=== PATIENT | female | born 1940 | race Caucasian/White ===

== ENCOUNTER → 2016-11-08 | Outpatient (CLI) | payer MEDICARE ==
--- NOTE | 2016-11-08 09:27 | EKG ---
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
== END | disposition home or self-care (01) ==
LOC: CCL 09:09
DX: M65.331 Trigger finger, right middle finger (principal)
CPT/HCPCS: 93005

== ENCOUNTER 2019-06-14 12:00 | Day surgery (SDC) | payer BC ==
[~2019-06-14] VITALS: Ht 165.1 cm; Wt 56.0 kg
[~2019-06-14 12:00] MED LIST: ACET325T9 PO; ALBU2.5V5 NEB; ALPR0.5T6 PO; AMOX1TAB61 PO; ASPI-630 PO; ATOR40TA59 PO; CELE100C PO; DICY10CA3 PO; DULO20CA18 PO; ESCITALOPRAM OX10 MG PO; FURO40TA4 PO; HYDR-2761 PO; LACT1CAP21 PO; LISI-338 PO; METO-239 PO; OMEP20TA8 PO; POTA20TA40 PO; PRED20TA PO
[2019-06-14] MEDS ORDERED: IOHEXOL 300 MG/ML 50 ML VIAL. ONE (12:19)
[2019-06-14] MEDS ORDERED: LIDOCAINE 2% PF 5 ML VIAL. ONE (13:14)
[2019-06-14] MEDS ORDERED: fentaNYL PF VIAL 100 MCG/2 ML VIAL ONE (13:14)
[2019-06-14] MEDS ORDERED: PROPOFOL 20 ML IV ONE (13:14)
[2019-06-14] MEDS ORDERED: IV RINGERS,LACTATED 1000ML 1,000 ML IV ONE (13:30)
[2019-06-14] MEDS ORDERED: ONDANSETRON PF 4 MG/2 ML VIAL. ONE (13:38)
[2019-06-14] MEDS ORDERED: DEXAMETHASONE SOD PHOS 4 MG/ML VIAL ONE (13:38)
[2019-06-14] MEDS ORDERED: SEVOFLURANE 31 TO 60 MINUTES. IH ONE (13:38)
--- NOTE | 2019-06-14 13:59 | PDOC4 ---
OPERATIVE NOTE Date: Date: Jun 14, 2019 Pre-Op Diagnosis: right ureter stone Post-Op Diagnosis: history of kidney stone Procedure Performed: right ureteroscopy (diagnostic) Surgeon: Mariangel Nascimento MD Anesthesia Type: general Blood Loss: 0 Specimans Obtained: none Findings: normal right ureter and kidney. no stones identified. Complications: none Operative Note: see dictation MARIANGEL NASCIMENTO MD Jun 14, 2019 13:59
--- NOTE | 2019-06-14 14:03 | DISCH ---
DISCHARGE INSTRUCTIONS Condition on Discharge Condition on Discharge: Stable Activity After Discharge Activity Instructions for Disc: Activity as tolerated Driving Instructions after Dis: Do not drive Diet after Discharge Diet after Discharge: Cardiac Contacting the DR. after DC Call your doctor for: Concerns you may have MARIANGEL NASCIMENTO MD Jun 14, 2019 14:03
[2019-06-14] MEDS ORDERED: IV RINGERS,LACTATED 1000ML 1,000 ML IV SCH (14:42)
[2019-06-14] MEDS ORDERED: PROCHLORPERAZINE 10 MG/2 ML VIAL. IV PRN (14:45)
[2019-06-14] MEDS ORDERED: LIDOCAINE 1% PF 2 ML VIAL. ID PRN (14:45)
[2019-06-14] MEDS ORDERED: MORPHINE SULFATE 2 MG/ML VIAL. IV PRN (14:45)
[2019-06-14] MEDS ORDERED: HYDROmorphone 2 MG/ML VIAL IV PRN (14:45)
[2019-06-14] MEDS ORDERED: fentaNYL PF VIAL 100 MCG/2 ML VIAL IV PRN ×2 (14:45)
[2019-06-14 15:20] VITALS: BP 174/82
--- NOTE | 2019-06-14 15:21 | OP ---
DATE OF SURGERY: 06/14/2019 SURGEON: Mariangel Nascimento MD CHEMISTRY LECTURER: None. PREOPERATIVE DIAGNOSIS: Right ureter stone. POSTOPERATIVE DIAGNOSIS: History of kidney stone. PROCEDURE PERFORMED: Right diagnostic ureteroscopy and stent removal. ANESTHESIA TYPE: General. DESCRIPTION OF PROCEDURE: This is a 78-year-old female recently hospitalized for UTI and pyelonephritis with a 3 mm right ureter stone. She had undergone right ureter stent placement. Now, she returns for definitive stone management. DESCRIPTION OF PROCEDURE: Informed consent was obtained. The patient was taken to the operating room where general anesthesia was induced. She was placed in the dorsal lithotomy position, sterilely prepped and draped. A timeout was performed. A rigid cystoscope was advanced through the urethra and into the bladder. The ureteral stent was grasped and pulled out to the urethral meatus. A guidewire was placed through the stent and up into the right renal pelvis. The stent was removed. A rigid ureteroscope was advanced alongside the wire and into the ureter and all the way up to the proximal ureter. No stone was visualized and the ureter was widely patent. The rigid scope was removed and a flexible ureteroscope was advanced over the wire and up into the right renal pelvis. Renal pelvis appeared normal without stones. The ureter was inspected while withdrawing the scope and again no stones were seen. The bladder was emptied. The patient was then awakened and taken to the recovery room in stable condition. BLOOD LOSS: None. COMPLICATIONS: None. SPECIMEN: None. MARIANGEL NASCIMENTO MD DR: SARAH/kelly JOB#: [id number] / [id number]
== END 2019-06-14 15:57 | disposition home or self-care (01) ==
LOC: SURG 12:00
PROVIDERS: ATTEND Urology
DX: Z46.6 Encounter for fitting and adjustment of urinary device (principal); Z87.442 Personal history of urinary calculi; Z87.440 Personal history of urinary (tract) infections
CPT/HCPCS: 52310; 76000; A7015; C1769; J0690; J1100; J2001; J2405; J2704; J3010; Q9967

== ENCOUNTER 2019-07-17 08:54 | Outpatient (CLI) | payer BC ==
[~2019-07-17] VITALS: Ht 165.1 cm; Wt 57.6 kg
[2019-07-17] VITALS (9 sets, daily range): BP systolic 126–147; BP diastolic 49–73
[2019-07-17 10:14] LABS: HEMATOCRIT 31.2 % (36.0-47.0); HEMOGLOBIN 10.4 g/dL (12.0-15.5); RED BLOOD COUNT 3.34 x10^6/uL (3.50-5.40); RED CELL DISTRIBUTION WIDTH 15.2 % (11.5-14.5); WHITE BLOOD COUNT 7.3 x10^3/uL (4.0-11.0)
[2019-07-17] MEDS ORDERED: HEPARIN for ARTERIAL LINE 1,500 ML ONE (10:14)
[2019-07-17] MEDS ORDERED: IODIXANOL 320 MG/ML 100 ML VIAL. ONE (10:14)
[2019-07-17] MEDS ORDERED: LIDOCAINE 1% PF 2 ML VIAL. ONE (10:14)
[2019-07-17 10:20] LABS: CREATININE 0.9 mg/dL (0.6-1.0); GFR 60.4; POTASSIUM 4.6 mmol/L (3.5-5.1)
[2019-07-17] MEDS ORDERED: LIDOCAINE 1% Multi-Dose 20 ML VIAL. ONE (10:20)
[2019-07-17] MEDS ORDERED: DULO20CA PO (10:26)
[2019-07-17 10:33] LABS: PROTHROMBIN TIME PATIENT 12.4 SEC (11.7-14.0)
[2019-07-17] MEDS ORDERED: VERAPAMIL 5 MG/2 ML VIAL. IART ONE (11:00)
[2019-07-17] MEDS ORDERED: IODIXANOL 320 MG/ML 100 ML VIAL. IART ONE (11:00)
[2019-07-17] MEDS ORDERED: HEPARIN for IV BOLUS 10,000 UNIT/10 ML VIAL. IART ONE (11:00)
[2019-07-17] MEDS ORDERED: NITROGLYCERIN 200 MCG/2 ML SYRINGE FOR CATH/VASC LAB. IART ONE (11:00)
[2019-07-17] MEDS ORDERED: MIDAZOLAM HCL/PF 2 MG/2 ML VIAL. IV ONE (11:00)
[2019-07-17] MEDS ORDERED: LIDOCAINE 1% PF 2 ML VIAL. INJ ONE (11:00)
[2019-07-17] MEDS ORDERED: fentaNYL PF VIAL 100 MCG/2 ML VIAL IV ONE (11:00)
[2019-07-17] MEDS ORDERED: MIDAZOLAM HCL/PF 2 MG/2 ML VIAL. ONE (11:12)
[2019-07-17] MEDS ORDERED: fentaNYL PF VIAL 100 MCG/2 ML VIAL ONE (11:12)
[2019-07-17] MEDS ORDERED: HEPARIN for IV BOLUS 10,000 UNIT/10 ML VIAL. ONE (11:12)
[2019-07-17] MEDS ORDERED: VERAPAMIL 5 MG/2 ML VIAL. ONE (11:12)
[2019-07-17] MEDS ORDERED: NITROGLYCERIN 200 MCG/2 ML SYRINGE FOR CATH/VASC LAB. ONE (11:13)
--- NOTE | 2019-07-17 11:28 | CARD ---
MR#: [id number] Date of Study: 07/17/2019 Ordering Physician: SAIMA REA, Referring Physician: SAIMA REA, Tech: RT Samm (R) APPROVED REPORT Technologist: Misa Cisneros RT (R) Nurse: Bee Sanchez R.N. Procedure(s) performed: fl time: 4.0 mins dose: 16.8 gy/cm2 contrast: 54 ml sedation: 40 Minutes LHC, Coronary angiography, Left ventriculogram HISTORY The patient is a 78 year-old female with a history of : hypertension, dyslipidemia. INDICATION The indication(s) include : unstable angina , dyspnea, valvular heart disease, cardiomyopathy. [facility] Clinical Frailty Scale [facility] Clinical Frailty Scale: Moderately Frail Heart Failure Heart Failure: Yes If Yes, Newly Diagnosed: No If Yes, HF Type: Systolic If Yes, NYHA Class: Class II CASE TECHNIQUE During this case, Fluoroscopy and low osmolar contrast were used for imaging. PROCEDURE NARRATIVE INFORMED CONSENT: After explaining the risks and benefits of the procedure and alternatives, informed consent was obtained. The patient was brought electively to the cardiac catheterization lab. A timeout was performed confi rming the patient's name, date of , procedure, and site of procedure. All necessary personnel w ere wearing the appropriate protective equipment and radiation monitor devices. (See nursing notes for medications administered). ACCESS: The right wrist was sterilely prepped and draped in the usual fashion. The right wrist was infiltrat ed with 1 mL of 2% lidocaine for subcutaneous anesthesia. A 6 [place] Terumo glide sheath was inserte d into the right radial artery without difficulty. CORONARY ANGIOGRAPHY: Right and left coronary angiography was performed using a 6Fr TIG 4.0 catheter. Left ventricular en d diastolic pressure was obtained with a pigtail catheter and pullback was performed after left ventr iculography. All catheter exchanges and advancements were performed over a guidewire. CLOSURE: At case completion the right radial sheath was removed and a Terumo radial band was applied with 13 m l of air. COMPLICATIONS: The patient tolerated the procedure well and there were no immediate complications. FINDINGS: HEMODYNAMICS: LVEDP 16 mm Hg 25 mm Hg peak to peak gradient on pullback. AO: 128/78 LEFT VENTRICULOGRAM: EF 55% Anterobasal: Normal. Anterolateral: Normal Apical: Normal Diaphragmatic: Normal Posterobasal: Normal CORONARY ANGIOGRAPHY: LM is a large caliber vessel with a distal 20% stenosis. LAD is a large caliber vessel with normal angiographic appearance. Ramus is a moderate caliber vessel with normal angiographic apeparance. LCx is a moderate caliber non-dominant vessel with normal angiographic appearance. OM1 is a moderate caliber vessel with normal angiographic appearance. RCA is a large caliber dominant vessel with normal angiographic appearance. RPDA and RPL are moderate caliber vessels with normal angiographic appearance. Conclusion 1. Normal left sided filling pressures. 2. Mild aortic stenosis. 3. Normal LV systolic function. EF 55% 4. No significant obstructive coronary disease. Recommendations Aggressive Medical Therapy Signed by : Saima Rea, Electronically Approved : 07/17/2019 11:27:46
--- NOTE | 2019-07-17 13:50 | NUR ---
Discharge Note: URBANO BERGERON Discharge instructions and discharge home medications reviewed with patient and a copy given. All questions have been answered and understanding verbalized. The following instructions and handouts were given: Radial site care and moderate sedation. Discontinued lines, right radial dressing site intact and armboard secure. Patient discharged to home with spouse via wheelchair.
== END 2019-07-17 13:50 | disposition home or self-care (01) ==
LOC: CCL 08:54
PROVIDERS: ATTEND Internal Medicine Cardiovascular Disease
DX: I25.110 Atherosclerotic heart disease of native coronary artery with unstable angina pectoris (principal); I35.0 Nonrheumatic aortic (valve) stenosis; I10 Essential (primary) hypertension; E78.5 Hyperlipidemia, unspecified; I42.9 Cardiomyopathy, unspecified; Z79.899 Other long term (current) drug therapy; Z79.01 Long term (current) use of anticoagulants
CPT/HCPCS: 36415; 80048; 85027; 85610; 85730; 93458; 99152; 99153; C1769; C1892; J1644; J2250; J3010; J3490; Q9967

== ENCOUNTER 2019-11-30 22:21 | Emergency (ER) | payer BC ==
[~2019-11-30] VITALS: Ht 157.5 cm; Wt 55.0 kg
[~2019-11-30 22:21] MED LIST changes: +DULO20CA PO
--- NOTE | 2019-11-30 22:44 | PHYS DOC ---
Past Medical History Past Medical History: Anxiety, Arthritis, COPD, Depression, GERD, Hypertension Additional Past Medical Histor: MACULAR DEGENERATION, BLIND IN RIGHT EYE, GLAUCOMA Past Surgical History: No Surgical History Smoking Status: Former Smoker Alcohol Use: None Drug Use: None Adult General HPI HPI Patient is a 79 year old female who presents with ground-level fall that occurred prior to arrival. The patient does not remember all of the event. The patient denies blood thinner use. The patient has bruising to the left eye, and a small laceration to the around the eyebrow. The patient has a bruise on the right knee, and thinks that her right knee might of given out on her. The patient also has bruising to the left shoulder and the right hand. She also reports cervical neck pain. Unable to obtain additional information at this time due to the discomfort of the patient. Review of Systems Review of Systems Constitutional: Denies fever or chills [] Eyes: Denies change in visual acuity, redness, or eye pain [] HENT: Denies nasal congestion or sore throat [] Respiratory: Denies cough or shortness of breath [] Cardiovascular: No additional information not addressed in HPI [] GI: Denies abdominal pain, nausea, vomiting, bloody stools or diarrhea [] : Denies dysuria or hematuria [] Musculoskeletal: Reports neck pain, face pain, L humerus, L shoulder, R knee, R hand, wrist, and L femur. Integument: Reports bruising to the L shoulder, R knee, R hand. Neurologic: Denies headache, focal weakness or sensory changes []h or skin lesions Endocrine: Denies polyuria or polydipsia [] Complete systems were reviewed and found to be within normal limits, except as documented in this note. Current Medications Current Medications Current Medications Medications (Trade) Dose Ordered Sig/Simin Start Time Stop Time Status Last Admin Dose Admin Fentanyl Citrate (Fentanyl 2ml Vial) 50 mcg 1X ONCE 12/01/19 00:30 12/01/19 00:31 Nicardipine HCl 50 mg/Sodium Chloride 250 ml @ 25 mls/hr CONT PRN 12/01/19 00:00 12/01/19 00:09 DC 12/01/19 00:09 25 MLS/HR Ondansetron HCl (Zofran) 4 mg 1X ONCE 11/30/19 23:00 11/30/19 23:01 DC 11/30/19 23:38 4 MG Allergies Allergies Allergies Coded Allergies Type Severity Reaction Last Updated Verified NSAIDS (Non-Steroidal Anti-Inflamma Allergy Intermediate RASH 06/14/19 Yes Physical Exam Physical Exam Constitutional: Well developed, well nourished, no acute distress, non-toxic appearance. [] HENT: Normocephalic, traumatic, <0.25 laceration to the L eyebrow that has dried crusted blood, bruising to L cheekbone, bilateral external ears normal, oropharynx moist, no oral exudates, nose normal. [] Eyes: PERRLA, EOMI, conjunctiva normal, no discharge. [] Neck: Cervical spine tenderness, supple, no stridor. [] Cardiovascular:Heart rate regular rhythm, no murmur [] Lungs & Thorax: Bilateral breath sounds clear to auscultation [] Abdomen: Bowel sounds normal, soft, no tenderness, no masses, no pulsatile masses. [] Skin: Warm, dry, no erythema, no rash. [] Back: No tenderness, no CVA tenderness. [] Extremities: Tenderness to R knee, L femur, L shoulder, pelvis, R hand, L humerus. Full ROM to L shoulder. Edema to R hand. Neurologic: Alert and oriented X 3, normal motor function, normal sensory function, no focal deficits noted. [] Psychologic: Affect normal, judgement normal, mood normal. [] Current Patient Data Vital Signs Vital Signs Date Time Temp Pulse Resp B/P (MAP) Pulse Ox O2 Delivery O2 Flow Rate FiO2 11/30/19 23:37 72 187/83 (117) Nasal Cannula 4.0 11/30/19 22:25 97.8 22 100 97.8 Lab Values Laboratory Tests Test 11/30/19 23:07 White Blood Count 10.0 x10^3/uL (4.0-11.0) Red Blood Count 3.25 x10^6/uL (3.50-5.40) L Hemoglobin 10.3 g/dL (12.0-15.5) L Hematocrit 30.2 % (36.0-47.0) L Mean Corpuscular Volume 93 fL (79-100) Mean Corpuscular Hemoglobin 32 pg (25-35) Mean Corpuscular Hemoglobin Concent 34 g/dL (31-37) Red Cell Distribution Width 14.4 % (11.5-14.5) Platelet Count 212 x10^3/uL (140-400) Neutrophils (%) (Auto) 66 % (31-73) Lymphocytes (%) (Auto) 22 % (24-48) L Monocytes (%) (Auto) 8 % (0-9) Eosinophils (%) (Auto) 3 % (0-3) Basophils (%) (Auto) 1 % (0-3) Neutrophils # (Auto) 6.6 x10^3/uL (1.8-7.7) Lymphocytes # (Auto) 2.2 x10^3/uL (1.0-4.8) Monocytes # (Auto) 0.8 x10^3/uL (0.0-1.1) Eosinophils # (Auto) 0.3 x10^3/uL (0.0-0.7) Basophils # (Auto) 0.1 x10^3/uL (0.0-0.2) Prothrombin Time 12.5 SEC (11.7-14.0) Prothrombin Time INR 1.0 (0.8-1.1) Activated Partial Thromboplast Time 29 SEC (24-38) Sodium Level 145 mmol/L (136-145) Potassium Level 4.0 mmol/L (3.5-5.1) Chloride Level 107 mmol/L (98-107) Carbon Dioxide Level 35 mmol/L (21-32) H Anion Gap 3 (6-14) L Blood Urea Nitrogen 22 mg/dL (7-20) H Creatinine 0.9 mg/dL (0.6-1.0) Estimated GFR (Cockcroft-Gault) 60.2 BUN/Creatinine Ratio 24 (6-20) H Glucose Level 143 mg/dL (70-99) H Calcium Level 9.1 mg/dL (8.5-10.1) Total Bilirubin 0.4 mg/dL (0.2-1.0) Aspartate Amino Transferase (AST) 17 U/L (15-37) Alanine Aminotransferase (ALT) 17 U/L (14-59) Alkaline Phosphatase 111 U/L (46-116) Troponin I Quantitative < 0.017 ng/mL (0.000-0.055) Total Protein 6.7 g/dL (6.4-8.2) Albumin 3.5 g/dL (3.4-5.0) Albumin/Globulin Ratio 1.1 (1.0-1.7) Laboratory Tests 11/30/19 23:07 Laboratory Tests 11/30/19 23:07 EKG EKG [] Radiology/Procedures Radiology/Procedures [facility] [address] [place] [address] IMAGING REPORT Signed PATIENT: URBANO BERGERON ACCOUNT: [id number] : 1940 LOCATION: ER AGE: 79 SEX: F EXAM STATUS: REG ER ORD. PHYSICIAN: KELLEN MAHMOOD APRN REASON: fall PROCEDURE: CT CERVICAL SPINE WO CONTRAST Exam: CT head, face and cervical spine INDICATION: Fall TECHNIQUE: Sequential axial images through the head, face and cervical spine were obtained without the administration of IV contrast. Comparisons: None FINDINGS: Head: Small amount of subarachnoid hemorrhage in the right temporal region.. There is no midline shift or sulcal effacement. No acute vascular territory infarction is identified. Llamas-white distinction is preserved. The ventricular system is within normal limits without compression hydrocephalus. The basal cisterns are well maintained. Face: Fracture through the anterior, medial and posterior wall of the left maxillary sinus. Hemorrhagic products are noted throughout the left maxillary sinus. Additionally, there is a fracture through the inferior/lateral wall of the left orbit. Small amount of air is noted within the post septal fat of the left orbit lung the lateral aspect adjacent to the fracture. Multipart fracture involving the left zygomatic arch is also noted. Otherwise, globes and intraorbital contents are normal. Cervical spine: Vertebral body heights and alignment are well-maintained. Fracture to the cervical spine is not identified. Multilevel spondylotic change in the cervical spine with mild diffuse degenerative disc disease and facet arthropathy. Visualized paraspinal soft tissues are unremarkable. IMPRESSION: 1. Small amount of subarachnoid hemorrhage in the right temporal region. 2. Extensive left facial fracture involving the anterior, medial and posterior simmons of the maxillary sinus as well as the left psychometric arch and lateral wall of the left orbit. Hemorrhagic products noted within the maxillary sinuses extending into the left nasal cavity. 3. Negative CT C-spine for acute traumatic injury. Exposure: One or more of the following in the visualized dose reduction techniques were utilized for this examination: 1. Automated exposure control 2. Adjustment of the MA and/or KV according to patient size Use of iterative of reconstructive technique FOR INTERNAL CODING PURPOSES Critical result: Findings discussed with KELLEN MAHMOOD at 11/30/2019 11:45 PM. RESULT CODE: (C) Electronically signed by: Tanvir Haque MD (11/30/2019 11:48 PM) [id number] DICTATED and SIGNED BY: TANVIR HAQUE MD DATE: 11/30/[address] [address] IMAGING REPORT Signed PATIENT: URBANO BERGERON ACCOUNT: [id number] : 1940 LOCATION: ER AGE: 79 SEX: F EXAM STATUS: REG ER ORD. PHYSICIAN: KELLEN MAHMOOD APRN REASON: fall PROCEDURE: SHOULDER 2+V LEFT Exam: Left humerus 2 views. Left shoulder 3 views INDICATION: Fall TECHNIQUE: Frontal and lateral views the left humerus. Frontal view of the left shoulder with internal and external rotation and transscapular Y view. Comparisons: None FINDINGS: Shoulder: Bone mineralization is normal. No acute or healed fractures. Soft tissues are unremarkable. Joint spaces are well-maintained. Numerous: Bone mineralization is normal. No acute or healed fractures. Soft tissues are unremarkable. Joint spaces are well-maintained. IMPRESSION: 1. No acute osseous abnormality of the left shoulder. 2. No acute osseous abnormality of the left humerus. Electronically signed by: Tanvir Haque MD (11/30/2019 11:08 PM) [id number] DICTATED and SIGNED BY: TANVIR HAQUE MD DATE: 11/30/[address] [address] IMAGING REPORT Signed PATIENT: URBANO BERGERON ACCOUNT: [id number] : 1940 LOCATION: ER AGE: 79 SEX: F EXAM STATUS: REG ER ORD. PHYSICIAN: KELLEN MAHMOOD APRN REASON: fall PROCEDURE: KNEE RIGHT 3V Exam: Right knee 3 views INDICATION: Fall TECHNIQUE: Frontal, lateral and oblique views of the right knee Comparisons: None FINDINGS: Bone mineralization is normal. No acute or healed fractures. Soft tissues are unremarkable. Joint spaces are well-maintained. IMPRESSION: No acute osseous abnormality. Electronically signed by: Tanvir Haque MD (11/30/2019 11:06 PM) [id number] DICTATED and SIGNED BY: TANVIR HAQUE MD DATE: 11/30/[address] [address] IMAGING REPORT Signed PATIENT: URBANO BERGERON ACCOUNT: [id number] : 1940 LOCATION: AGE: 79 SEX: F EXAM STATUS: REG ER ORD. PHYSICIAN: KELLEN MAHMOOD APRN REASON: fall PROCEDURE: HUMERUS LEFT Exam: Left humerus 2 views. Left shoulder 3 views INDICATION: Fall TECHNIQUE: Frontal and lateral views the left humerus. Frontal view of the left shoulder with internal and external rotation and transscapular Y view. Comparisons: None FINDINGS: Shoulder: Bone mineralization is normal. No acute or healed fractures. Soft tissues are unremarkable. Joint spaces are well-maintained. Numerous: Bone mineralization is normal. No acute or healed fractures. Soft tissues are unremarkable. Joint spaces are well-maintained. IMPRESSION: 1. No acute osseous abnormality of the left shoulder. 2. No acute osseous abnormality of the left humerus. Electronically signed by: Tanvir Haque MD (11/30/2019 11:08 PM) [id number] DICTATED and SIGNED BY: TANVIR HAQUE MD DATE: 11/30/19 230 [facility] [address] [place] [address] IMAGING REPORT Signed [place] [id number] [place] [address] IMAGING REPORT Signed PATIENT: URBANO BERGERON ACCOUNT: [id number] : 1940 LOCATION: ER AGE: 79 SEX: F EXAM STATUS: REG ER ORD. PHYSICIAN: KELLEN MAHMOOD APRN REASON: fall PROCEDURE: CHEST AP ONLY Exam: Chest one view INDICATION: Fall TECHNIQUE: Frontal view of the chest Comparisons: 05/01/2019 FINDINGS: The cardiomediastinal silhouette and pulmonary vessels are within normal limits. The lung and pleural spaces are clear. IMPRESSION: No acute cardiopulmonary process. Electronically signed by: Tanvir Haque MD (11/30/2019 11:10 PM) [id number] DICTATED and SIGNED BY: TANVIR HAQUE MD DATE: 11/30/19 700 PATIENT: URBANO BERGERON ACCOUNT: [id number] : 1940 LOCATION: ER AGE: 79 SEX: F EXAM STATUS: REG ER ORD. PHYSICIAN: KELLEN MAHMOOD APRN REASON: fall PROCEDURE: HAND RIGHT 3V Exam: Right wrist 3 views. Right hand 3 views INDICATION: Fall TECHNIQUE: Frontal, lateral and oblique views of the right hand and wrist. Comparisons: None FINDINGS: Hand: Bone mineralization is normal. No acute or healed fractures. Soft tissues are unremarkable. Joint spaces are well-maintained. Wrist: Bone mineralization is normal. No acute or healed fractures. Severe degenerative change at the first CMC joint. Soft tissues are unremarkable. IMPRESSION: 1. No acute osseous abnormality of the right hand. 2. No acute osseous abnormality of the right wrist. If the patient is exhibiting snuffbox tenderness recommend splinting with repeat imaging in 5-7 days to rule out an occult scaphoid injury. Electronically signed by: Tanvir Haque MD (11/30/2019 11:05 PM) [id number] DICTATED and SIGNED BY: TANVIR HAQUE MD DATE: 11/30/19 7089 [][facility] [address] [place], [place] [id number] IMAGING REPORT Signed PATIENT: JEFFREY KING ACCOUNT: [id number] : 08/26/1994 LOCATION: ER AGE: 25 SEX: F EXAM STATUS: REG ER ORD. PHYSICIAN: KELLEN MAHMOOD APRN REASON: R leg pain, swelling, and tenderness PROCEDURE: VENOUS LOWER EXTREMITY RIGHT Exam: Right lower extremity venous duplex study INDICATION: Right leg pain, swelling TECHNIQUE: Using a combination of real-time ultrasound imaging and color-flow and pulse Doppler imaging techniques along with graded compression and augmentation, duplex evaluation of the deep venous systems of rightlower extremity was performed. Multiple images were obtained. Findings: There is no sonographic evidence for deep venous thrombosis involving the visualized deep venous structures of the right lower extremity. IMPRESSION: No acute DVT in the right lower extremities. Electronically signed by: Tanvir Haque MD (11/30/2019 10:34 PM) [id number] DICTATED and SIGNED BY: TANVIR HAQUE MD DATE: 11/30/192233 Course & Med Decision Making Course & Med Decision Making Pertinent Labs and Imaging studies reviewed. (See chart for details) Patient was made Trauma alert on arrival to ER. Will get EKG, labs, imaging, and give supportive care. Labs shows hemoglobin of 10.3 which is at baseline. Labs are otherwise unremarkable. X-rays were unremarkable. CT shows: IMPRESSION: 1. Small amount of subarachnoid hemorrhage in the right temporal region. 2. Extensive left facial fracture involving the anterior, medial and posterior simmons of the maxillary sinus as well as the left psychometric arch and lateral wall of the left orbit. Hemorrhagic products noted within the maxillary sinuses extending into the left nasal cavity. 3. Negative CT C-spine for acute traumatic injury. Ordered Cardene to decrease BP <160 systolic. Patient family states that patient is blind in R eye at baseline and normally at baseline is partially blind in L eye but has peripheral vision which she does not have at this time. Discussed with family and recommended that due to the subarachnoid hemorrhage in the right temporal region and extensive left facial fractures. She will need ENT or FACE in addition to neurosurgery. Will call for transfer. [facility] accepts transfer. Accepting Dr. Coon. Yady Disclaimer Yady Disclaimer This electronic medical record was generated, in whole or in part, using a voice recognition dictation system. Departure Departure Impression: Primary Impression: Subarachnoid hemorrhage Additional Impressions: Left orbit fracture Left maxillary fracture Disposition: 05 TRANSFER OTHER ([facility]) Condition: CRITICAL Referrals: CHRISTOPH GAY MD (PCP) Problem Qualifiers Additional Impressions: Left orbit fracture Encounter type: initial encounter Fracture type: closed Qualified Codes: S02.85XA - Fracture of orbit, unspecified, initial encounter for closed fracture Left maxillary fracture Encounter type: initial encounter Fracture type: closed Qualified Codes: S02.40DA - Maxillary fracture, left side, initial encounter for closed fracture KELLEN MAHMOOD APRN Nov 30, 2019 22:44
[2019-11-30] MEDS ORDERED: fentaNYL PF VIAL 100 MCG/2 ML VIAL IV ONE (23:00)
[2019-11-30] MEDS ORDERED: ONDANSETRON PF 4 MG/2 ML VIAL. IV ONE (23:00)
--- NOTE | 2019-11-30 23:07 | RAD ---
Exam: Right wrist 3 views. Right hand 3 views INDICATION: Fall TECHNIQUE: Frontal, lateral and oblique views of the right hand and wrist. Comparisons: None FINDINGS: Hand: Bone mineralization is normal. No acute or healed fractures. Soft tissues are unremarkable. Joint spaces are well-maintained. Wrist: Bone mineralization is normal. No acute or healed fractures. Severe degenerative change at the first CMC joint. Soft tissues are unremarkable. IMPRESSION: 1. No acute osseous abnormality of the right hand. 2. No acute osseous abnormality of the right wrist. If the patient is exhibiting snuffbox tenderness recommend splinting with repeat imaging in 5-7 days to rule out an occult scaphoid injury. Electronically signed by: Tanvir Mead MD (11/30/2019 11:05 PM) [id number]
--- NOTE | 2019-11-30 23:09 | RAD ---
Exam: Right knee 3 views INDICATION: Fall TECHNIQUE: Frontal, lateral and oblique views of the right knee Comparisons: None FINDINGS: Bone mineralization is normal. No acute or healed fractures. Soft tissues are unremarkable. Joint spaces are well-maintained. IMPRESSION: No acute osseous abnormality. Electronically signed by: Tanvir Mead MD (11/30/2019 11:06 PM) [id number]
--- NOTE | 2019-11-30 23:11 | RAD ---
Exam: Left humerus 2 views. Left shoulder 3 views INDICATION: Fall TECHNIQUE: Frontal and lateral views the left humerus. Frontal view of the left shoulder with internal and external rotation and transscapular Y view. Comparisons: None FINDINGS: Shoulder: Bone mineralization is normal. No acute or healed fractures. Soft tissues are unremarkable. Joint spaces are well-maintained. Numerous: Bone mineralization is normal. No acute or healed fractures. Soft tissues are unremarkable. Joint spaces are well-maintained. IMPRESSION: 1. No acute osseous abnormality of the left shoulder. 2. No acute osseous abnormality of the left humerus. Electronically signed by: Tanvir Mead MD (11/30/2019 11:08 PM) [id number]
--- NOTE | 2019-11-30 23:13 | RAD ---
Exam: Chest one view INDICATION: Fall TECHNIQUE: Frontal view of the chest Comparisons: 05/01/2019 FINDINGS: The cardiomediastinal silhouette and pulmonary vessels are within normal limits. The lung and pleural spaces are clear. IMPRESSION: No acute cardiopulmonary process. Electronically signed by: Tanvir Mead MD (11/30/2019 11:10 PM) [email or web address]
[2019-11-30 23:18] LABS: BASO # 0.1 x10^3/uL (0.0-0.2); BASO % 1 % (0-3); EOS # 0.3 x10^3/uL (0.0-0.7); EOS % 3 % (0-3); HEMATOCRIT 30.2 % (36.0-47.0); HEMOGLOBIN 10.3 g/dL (12.0-15.5); LYMPH # 2.2 x10^3/uL (1.0-4.8); LYMPH % 22 % (24-48); MEAN CORPUSCULAR HEMOGLOBIN 32 pg (25-35); MEAN CORPUSCULAR HGB CONC 34 g/dL (31-37); MEAN CORPUSCULAR VOLUME 93 fL (79-100); MONO # 0.8 x10^3/uL (0.0-1.1); MONO % 8 % (0-9); NEUT # 6.6 x10^3/uL (1.8-7.7); NEUT % 66 % (31-73); PLATELET COUNT 212 x10^3/uL (140-400); RED BLOOD COUNT 3.25 x10^6/uL (3.50-5.40); RED CELL DISTRIBUTION WIDTH 14.4 % (11.5-14.5)
--- NOTE | 2019-11-30 23:18 | RAD ---
Exam: Left femur 2 views. Pelvis with bilateral hips INDICATION: Fall TECHNIQUE: Frontal view of pelvis with frontal and frog-leg lateral views of the hips. Frontal and lateral views the left femur. Comparisons: None FINDINGS: Pelvis: Bone mineralization is normal. No acute or healed fractures. Soft tissues are unremarkable. Joint spaces are well-maintained. Femur: Bone mineralization is normal. No acute or healed fractures. Soft tissues are unremarkable. Joint spaces are well-maintained. IMPRESSION: 1. No acute osseous abnormality identified at the pelvis. Patient is acutely unable to bear weight MRI to exclude occult hip fracture is recommended. 2. No acute osseous abnormality identified at the left femur. Electronically signed by: Tanvir Mead MD (11/30/2019 11:16 PM) [email or web address]
[2019-11-30 23:26] LABS: PROTHROMBIN TIME PATIENT 12.5 SEC (11.7-14.0)
[2019-11-30 23:28] LABS: CALCIUM 9.1 mg/dL (8.5-10.1); CREATININE 0.9 mg/dL (0.6-1.0); GFR 60.2
[2019-11-30 23:33] LABS: ALBUMIN 3.5 g/dL (3.4-5.0); ALBUMIN/GLOBULIN RATIO 1.1 (1.0-1.7); TOTAL BILIRUBIN 0.4 mg/dL (0.2-1.0); TOTAL PROTEIN 6.7 g/dL (6.4-8.2)
--- NOTE | 2019-11-30 23:51 | RAD ---
Exam: CT head, face and cervical spine INDICATION: Fall TECHNIQUE: Sequential axial images through the head, face and cervical spine were obtained without the administration of IV contrast. Comparisons: None FINDINGS: Head: Small amount of subarachnoid hemorrhage in the right temporal region.. There is no midline shift or sulcal effacement. No acute vascular territory infarction is identified. Llamas-white distinction is preserved. The ventricular system is within normal limits without compression hydrocephalus. The basal cisterns are well maintained. Face: Fracture through the anterior, medial and posterior wall of the left maxillary sinus. Hemorrhagic products are noted throughout the left maxillary sinus. Additionally, there is a fracture through the inferior/lateral wall of the left orbit. Small amount of air is noted within the post septal fat of the left orbit lung the lateral aspect adjacent to the fracture. Multipart fracture involving the left zygomatic arch is also noted. Otherwise, globes and intraorbital contents are normal. Cervical spine: Vertebral body heights and alignment are well-maintained. Fracture to the cervical spine is not identified. Multilevel spondylotic change in the cervical spine with mild diffuse degenerative disc disease and facet arthropathy. Visualized paraspinal soft tissues are unremarkable. IMPRESSION: 1. Small amount of subarachnoid hemorrhage in the right temporal region. 2. Extensive left facial fracture involving the anterior, medial and posterior simmons of the maxillary sinus as well as the left psychometric arch and lateral wall of the left orbit. Hemorrhagic products noted within the maxillary sinuses extending into the left nasal cavity. 3. Negative CT C-spine for acute traumatic injury. Exposure: One or more of the following in the visualized dose reduction techniques were utilized for this examination: 1. Automated exposure control 2. Adjustment of the MA and/or KV according to patient size Use of iterative of reconstructive technique FOR INTERNAL CODING PURPOSES Critical result: Findings discussed with KELLEN MAHMOOD at 11/30/2019 11:45 PM. RESULT CODE: (C) Electronically signed by: Tanvir Mead MD (11/30/2019 11:48 PM) [email or web address]
[2019-12-01 00:21] LABS: BILIRUBIN,URINE SMALL (NEG); CLARITY,URINE CLEAR; COLOR,URINE YELLOW; NITRITE,URINE NEGATIVE (NEG); PROTEIN,URINE NEGATIVE (NEG-TRACE)
[2019-12-01 00:28] LABS: AMORPHOUS SEDIMENT,UR PRESENT /HPF; BACTERIA,URINE 0 /HPF (0-FEW); HYALINE CASTS, URINE MODERATE /HPF; RBC,URINE OCC /HPF (0-2); SQUAMOUS EPITHELIAL CELL,UR OCC /LPF; WBC,URINE OCC /HPF (0-4)
[2019-12-01] MEDS ORDERED: fentaNYL PF VIAL 100 MCG/2 ML VIAL IV ONE (00:30)
[2019-12-01] MEDS ORDERED: ONDANSETRON PF 4 MG/2 ML VIAL. IV ONE (01:00)
[2019-12-01 01:02] VITALS: BP 144/67
--- NOTE | 2019-12-01 21:57 | EKG ---
[facility] [address] [place] [address] Test Date: 2019-12-01 Test Time: 00:01:07 Pat Name: URBANO BERGERON Department: Room: Gender: F [employer]er: : 1940 Requested By: KELLEN MAHMOOD Order Number: [id number] Reading MD: Measurements Intervals Morgan Rate: 72 P: 90 HI: 198 QRS: 26 QRSD: 82 T: 43 QT: 394 QTc: 433 Interpretive Statements SINUS RHYTHM NO SPECIFIC ECG ABNORMALITIES RI6.01 No previous ECG available for comparison
== END 2019-12-01 01:10 | disposition short-term general hospital (02) ==
LOC: ER 22:21
DX: S06.6X0A Traumatic subarachnoid hemorrhage without loss of consciousness, initial encounter (principal); S02.85XA Fracture of orbit, unspecified, initial encounter for closed fracture; S02.40DA Maxillary fracture, left side, initial encounter for closed fracture; S40.012A Contusion of left shoulder, initial encounter; S80.01XA Contusion of right knee, initial encounter; S60.221A Contusion of right hand, initial encounter; M54.2 Cervicalgia; R10.2 Pelvic and perineal pain; R51 Headache; K21.9 Gastro-esophageal reflux disease without esophagitis; J44.9 Chronic obstructive pulmonary disease, unspecified; I10 Essential (primary) hypertension; Z87.891 Personal history of nicotine dependence; Z88.6 Allergy status to analgesic agent; W18.39XA Other fall on same level, initial encounter; Y93.89 Activity, other specified; Y92.89 Other specified places as the place of occurrence of the external cause; Y99.8 Other external cause status
CPT/HCPCS: 36415; 70450; 70486; 71045; 72125; 73030; 73060; 73110; 73130; 73521; 73552; 73562; 80053; 81001; 84484; 85025; 85610; 85730; 93005; 96365; 96375; 96376; 99285; J2405; J3010; J3490; J7050; J7030

== ENCOUNTER → 2021-05-13 | Outpatient (CLI) | payer BC ==
[~2021-05-13] MED LIST changes: +ALBU2.5V8 IH; +BUPIVACAINE MPF 0.25% 10 ML VIAL. ONE; +GABA-585 PO; +IOHEXOL 180 MG/ML 10 ML VIAL. ONE; -LISI-338 PO; +LISI-517 PO; +PROP20TA PO; +methylPREDNISolone ACETATE 40 MG/ML VIAL. ONE; +methylPREDNISolone ACETATE 80 MG/ML VIAL. ONE
--- NOTE | 2021-05-13 13:30 | PDOC1 ---
INITIAL PAIN CONSULT DATE OF SERVICE: DOS: DATE: 05/13/21 TIME: 13:20 CHIEF COMPLAINT: Chief Complaint: Low back and left hip pain HISTORY OF PRESENT ILLNESS: 80-year-old female presents history of pain low back into the left lower extremity for many years since about 2014 at the result of any specific injury or accident that she is aware of making gradually worse over time with pain rating from across the low back and the left posterior hip posterior lateral gluteus mostly in the back itself though bilaterally but worse on the left side. Patient reports got worse over the past 6 months or so she has been treatment at outside facility including epidural steroid injections and facet blocks x1 reports the facet blocks lasted longer but only had 1 set of injections there and that was in September 2020. Patient reports pain is increasing since that time in the low back and the left leg she has had some physical therapy in the past as well which been helpful but only temporarily patient had no other therapies at this time patient is taking Tylenol as well as hydrocodone she takes 1 tablet hydrocodone breaks in half takes one half in the morning one half in the evening reports this takes the edge off enough for her to be somewhat functional at home but also time she is resting sitting laying down and sleeping quite a bit patient reports the pain is constant aching sharp across the low back stabbing can be burning and radiating across the back as well occasionally in the left lower extremity but mostly just in the low back patient reports it wakes her from sleep at night frequently does not affect her bowel bladder control significantly does affect her ability to walk however she is using a cane that she is legally blind and has a white cane that she uses in her right hand. 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 Patient had previous plain films and CT scans at outside facility December of this year showing significant stenosis and disc space narrowing in the lumbar spine throughout with facet arthropathy significant L3-4 L4-5 and L5-S1 bilaterally. PAST MEDICAL HISTORY: PMH: Hearing loss, COPD, hypertension, irritable bowel syndrome, legally blind, arthritis, anxiety and depression PREVIOUS SURGERIES: Past Surgical Hx: Hysterectomy, hernia repair, appendectomy, cholecystectomy, bladder surgery x2, bowel obstruction with adhesiolysis x2, cataract extractions, macular degeneration CURRENT MEDICATIONS: Current Meds: Active Scripts Medications Dose Route/Sig Max Daily Dose Days Date Category Propranolol Hcl 20 Mg Tablet 1 Tab PO BID 05/13/21 Reported Gabapentin (Gabapentin) 100 Mg Capsule 100 Mg PO HS 05/13/21 Reported Proair Hfa Inhaler (Albuterol Sulfate) 8.5 Gm Hfa.aer.ad 2 Puff IH PRN Q4-6HRS PRN 21 05/13/21 Reported Hydrocodone-Apap 5-325 (Hydrocodone Bit/Acetaminophen) 1 Tab Tablet 0.5 Tab PO PRN Q6HRS PRN 05/13/21 Reported Aspirin 81 Mg Tab.chew 81 Mg PO DAILY 05/03/19 Reported Lisinopril 5 Mg Tablet 5 Mg PO DAILY 05/03/19 Reported Metoprolol Succinate ( Xl ) (Metoprolol Succinate) 25 Mg Tab.er.24h 25 Mg PO DAILY 05/03/19 Reported Atorvastatin Calcium 40 Mg Tablet 40 Mg PO HS 05/03/19 Reported Dicyclomine Hcl 10 Mg Capsule 1 Cap PO PRN AFTMEAL PRN 04/26/19 Reported Albuterol Sulfate Neb Soln (Albuterol Sulfate) 2.5 Mg/3 Ml Vial.neb 1 Vial NEB PRN TID PRN 04/26/19 Reported Omeprazole 20 Mg Tablet.dr 20 Mg PO DAILY 04/25/19 Reported Escitalopram Oxalate 10 Mg Tablet 10 Mg PO BID 04/25/19 Reported ALLERGIES; Allergies: Coded Allergies: NSAIDS (Non-Steroidal Anti-Inflamma (Verified Allergy, Intermediate, RASH , 06/14/19) FAMILY HISTORY: Family Hx: No major medical problems or conditions that she is aware of. SOCIAL HISTORY: Social Hx: Patient is nondrug alcohol does not smoke not use any illegal illicit or recreational drugs, is lives with her spouse lives locally in [facility] REVIEW OF SYSTEMS: ROS: Positive for those items mentioned in history of present illness, legal blindness, and all systems are reviewed, otherwise negative ,and are complete full and well-documented on patient's chart. PHYSICAL EXAM: VS: Blood pressure 130/70 pulse 64 respirations 18 temperature 98.2 F height is 5 foot 6 inches weight is 126 pounds PE: PHYSICAL EXAMINATION: GENERAL: The patient is awake, alert, oriented, appropriate, very pleasant in demeanor, patient accompanied by her spouse. HEENT: Shows normocephalic, atraumatic. Extraocular movements are intact and symmetrical. Oral cavity: Mucous membranes moist and pink. NECK: Shows anterior throat supple without palpable lymphadenopathy noted. Swallow reflex symmetrical. CHEST: Shows normal on inspection. Breath sounds are clear bilaterally, distant no rales rhonchi or wheezes auscultated. HEART: Shows S1, S2 clear. No murmurs auscultated. ABDOMEN: Soft, nontender, nondistended, flat. No palpable organomegaly is noted. No rebound or guarding demonstrated. BACK: Shows spine grossly in the midline. Normal-appearing cervical lordotic curvature. Cervical paraspinous muscles show symmetrical inspection on palpation some moderate tenderness diffusely in the middle and lower distribution paraspinous muscles also into the superior medial trapezius bilaterally but without specific trigger points. Patient shows good rotation motion cervical spine both laterally as well as full extension full forward flexion. There is increased thoracic kyphosis, some flattening of the lumbar lordotic curvature. Lumbar paraspinous muscles show symmetrical on inspection, on palpation shows some moderate tenderness diffusely throughout the upper, middle and lower distribution of the paraspinous muscles bilaterally and also into the lower thoracic paraspinous musculature, firm and tender, but without specific trigger points, without radiation of pain. The patient has good rotational motion of the lumbar spine, both laterally as well as extension and flexion with significant tenderness with extension and axial loading lumbar spine, rotation motion much more tender with left lateral rotation greater than 10 degrees right but upon fully forward flexion is performed at 45 degrees without significant pain reported. No tenderness over the spinous processes, sacrum or sacroiliac regions. EXTREMITIES: Lower extremities show deep tendon reflexes 1+ in the patellar and tendo calcaneus tendons. Motor exam is 5 on a scale of 5 with right dorsiflexion, extension, quadriceps and hamstring flexion and 4/5 on the left. Peripheral pulses are 1+ posterior tibial. No peripheral edema is noted bilaterally. Lower extremities are warm and dry to touch, equal in color and appearance. Straight leg raise noted to be negative bilaterally. Gaenslen's and David's maneuvers are negative as well. The patient is able to stand, needs assistance getting up from a seated position but when she is on her feet walks with a shuffling gait does appear to favor the left lower extremity slightly more than right and again is using a cane in her right hand. SKIN: Shows warm and dry, good turgor. No edema. No sores, rashes or bruising throughout. IMPRESSION: Impression: 80-year-old female with long history of low back pain, consistent with lumbar facet syndrome. Previous CT scans as noted Arthritis Hypertension COPD Hearing loss Legal blindness Plan: Options were discussed with the patient patient spouse who accompanied her to visit today. We discussed conservative medical management physical therapies interventional techniques. Patient would like to pursue interventional techniques. We discussed lumbar facet medial branch blocks using description as well as anatomical models to describe the procedure with both she and her spouse. Risks were discussed including but not limited to: Bleeding, infection, possibility of epidural hematoma and subsequent neurological compromise, dural puncture, headaches, spinal cord and/or nerve damage, side effects of steroid medication, and poor results regarding pain control. Patient understands and wished to proceed. Patient return to clinic in approximate 4 weeks for follow- up, also will add physical therapy for myofascial release and massage techniques as well as ultrasound treatment for the thoracic and cervical paraspinous musculature and upper lumbar paraspinous musculature. Under sterile prep and drape using C-arm fluoroscopic guidance AP and lateral and oblique views, bilateral L4-5 and L5-S1 facet joint MB's injections were performed, using quinke needles with stylette's x4,, medications injected: 120 mg Depo-Medrol +4 cc 0.25% bupivacaine +2 cc contrast. Condition at discharge stable patient tolerated the procedure well and no complications. MELLY CONTRERAS MD May 13, 2021 13:30
--- NOTE | 2021-05-13 13:31 | PDOC4 ---
Procedure Note: ICD 10 Code: ICD 10 Code: M 47.816 M 47.817 M 48.07 Procedure Note: Patient was consented for bilateral L4-5 and L5-S1 medial branch facet blocks with fluoroscopic guidance. Risks were discussed including but not limited to: Bleeding, infection, possibility of epidural hematoma and subsequent neurolog ical compromise, dural puncture, headaches, spinal cord and/or nerve damage, side effects of steroid medication, and poor results regarding pain control. Patient understands and wished to proceed. Under sterile prep and drape using C-arm fluoroscopic guidance AP and lateral and oblique views, bilateral L4-5 and L5-S1 facet joint MB's injections were performed, using quinke needles with stylette's x4,, medications injected: 120 mg Depo-Medrol +4 cc 0.25% bupivacaine +2 cc contrast. Condition at discharge s table patient tolerated the procedure well and no complications. MELLY CONTRERAS MD May 13, 2021 13:31
== END ==
LOC: PNCL 11:27
PROVIDERS: ATTEND Anesthesiology
DX: M51.17 Intervertebral disc disorders with radiculopathy, lumbosacral region (principal); M47.817 Spondylosis without myelopathy or radiculopathy, lumbosacral region; I10 Essential (primary) hypertension; J44.9 Chronic obstructive pulmonary disease, unspecified; F41.9 Anxiety disorder, unspecified; F32.9 Major depressive disorder, single episode, unspecified; M19.90 Unspecified osteoarthritis, unspecified site; Z79.899 Other long term (current) drug therapy; Z90.710 Acquired absence of both cervix and uterus; Z90.49 Acquired absence of other specified parts of digestive tract; Z98.41 Cataract extraction status, right eye; Z98.42 Cataract extraction status, left eye; Z98.890 Other specified postprocedural states
CPT/HCPCS: 64493; 64494; J1030; J1040; J3490; Q9965

== ENCOUNTER → 2021-12-07 | Outpatient (CLI) | payer BC ==
[~2021-12-07] MED LIST changes: +DEXAMETHASONE PRES.FREE 10 MG/ML VIAL. ONE; -LISI-517 PO; +LISI5TAB15 PO; -methylPREDNISolone ACETATE 40 MG/ML VIAL. ONE; -methylPREDNISolone ACETATE 80 MG/ML VIAL. ONE
--- NOTE | 2021-12-07 12:13 | PDOC ---
Progress Note - Pain Clinic Date of Service: DOS: DATE: 12/07/21 TIME: 12:08 Diagnosis: Dx: Lumbar and lumbosacral spondylosis History or Present Illness: HPI: 81-year-old female returns, last seen May 2021 patient underwent lumbar facet medial branch blocks with very good results, patient was preoccupied with other events and things going on with that she and her spouse after the last visit and has not returned until today patient reports still significant pain in the low back bilaterally worse on the right than the left but present bilaterally worse with standing walking changing positions especially getting up from seated position patient reports it generally does not awaken her from sleep at night but over the past month or so it has about once a night patient reports is in the low back itself without significant radiation at this time into the lower extremities patient reports the right side is worse with her both very painful worse with walking standing again prolonged sitting changing positions especially. Patient rates pain a 10 on scale 10 is worse over the past week 8 on average 5 at its least and is a 5 today. Patient reports its constant aching can be cramping and stabbing as well as a burning pain in the low back can be tight and shooting as well across the low back patient reports it can be severe at times. Patient reports no loss of motor function but significant fatigability of the lower extremities when the pain is at its worst with ambulation. Patient reports no bowel or bladder incontinence. Physical Exam: VS: Blood pressure is 121/61 pulse 70 respirations 18 temperature 98.6 F height 5 feet 6 inches weight is 109 pounds. PE: PHYSICAL EXAMINATION: GENERAL: The patient is awake, alert, oriented, appropriate, [facility] patient [place] by her . HEENT: Shows normocephalic, atraumatic. Patient legally blind, wearing dark glasses on initial presentation. Extraocular movements are intact and symmetrical. Oral cavity: Mucous membranes moist and pink. NECK: Shows anterior throat supple without palpable lymphadenopathy noted. Swallow reflex symmetrical. CHEST: Shows normal on inspection. Breath sounds are clear bilaterally, distant but no rales or rhonchi auscultated. HEART: Shows S1, S2 clear. No murmurs auscultated. ABDOMEN: Soft, nontender, nondistended. No palpable organomegaly is noted. BACK: Shows spine grossly in the midline. Normal-appearing cervical lordotic curvature. There is moderately increased thoracic kyphosis, some flattening of the lumbar lordotic curvature. Lumbar paraspinous muscles show symmetrical on inspection, on palpation shows some moderate tenderness diffusely throughout the upper, middle and lower distribution of the paraspinous muscles, without radi ation. The patient has good rotational motion of the lumbar spine, both laterally as well as extension and flexion with significant tenderness with extension and axial loading of the lumbar spine bilaterally worse on the right than the left without radiation. Patient shows rotation greater than 10 degrees right and left with significant pain again right greater than left without radiation as well for flexion is performed without significant increase in pain. EXTREMITIES: Lower extremities show deep tendon reflexes 1+ in the patellar and tendo calcaneus tendons. Motor exam is 4 on a scale of 5 with right dorsiflexion, extension, quadriceps and hamstring flexion and 4/5 on the left. Peripheral pulses are 1 posterior tibial. No peripheral edema is noted bi laterally. Lower extremities are warm and dry to touch, equal in color and appearance. SKIN: Shows warm and dry, good turgor. No edema. No sores, rashes or bruising throughout. Procedure: Procedure: Options discussed with patient. Patient's old chart was reviewed as her current medication regimen updated current review of systems updated today as well. We will proceed with bilateral L4-5 and L5-S1 facet medial branch blocks today with fluoroscopic guidance. Risks were discussed including but not limited to: Bleeding, infection, possibility of epidural hematoma and subsequent neurological compromise, dural puncture, headaches, spinal cord and/or nerve damage, side effects of steroid medication, and poor results regarding pain control. Patient understands and wished to proceed. Patient will return to clinic in approximately 2 weeks for follow-up, was counseled as to return appointment, activity level, and side effect to be aware of. Medication Injected: Med Injected: Under sterile prep and drape using C-arm fluoroscopic guidance AP and lateral and oblique views, bilateral L4-5 and L5-S1 facet joint MB's injections were performed, using quinke needles with stylette's x4,, medications injected: 20 mg dexamethasone +4 cc 0.25% bupivacaine +2 cc contrast. Condition at discharge stable patient tolerated the procedure well and no complications. Condition at Discharge: Condition at Discharge: Condition at discharge stable, paced tolerated procedure well and had no complications. MELLY CONTRERAS MD Dec 07, 2021 12:13
--- NOTE | 2021-12-07 12:14 | PDOC4 ---
Procedure Note: ICD 10 Code: ICD 10 Code: M4 7.816 M4 7.817 Procedure Note: Patient was consented for bilateral lumbar facet medial branch blocks L4-5 and L5-S1 with fluoroscopic guidance. Risks were discussed including but not limited to: Bleeding, infection, possibility of epidural hematoma and subsequent neurological compromise, dural puncture, headaches, spinal cord and/or nerve damage, side effects of steroid medication, and poor results regarding pain control. Patient understands and wished to proceed. Under sterile prep and drape using C-arm fluoroscopic guidance AP and lateral and oblique views, bilateral L4-5 and L5-S1 facet joint MB's injections were performed, using quinke needles with stylette's x4,, medications injected: 20 mg dexamethasone +4 cc 0.25% bupivacaine +2 cc contrast. Condition at discharge stable patient tolerated the procedure well and no complications. MELLY CONTRERAS MD Dec 07, 2021 12:14
== END | disposition home or self-care (01) ==
LOC: PNCL 11:07
PROVIDERS: ATTEND Anesthesiology
DX: M47.817 Spondylosis without myelopathy or radiculopathy, lumbosacral region (principal); M47.816 Spondylosis without myelopathy or radiculopathy, lumbar region; I11.0 Hypertensive heart disease with heart failure; I50.9 Heart failure, unspecified; E78.00 Pure hypercholesterolemia, unspecified; J44.9 Chronic obstructive pulmonary disease, unspecified; K21.9 Gastro-esophageal reflux disease without esophagitis; M19.90 Unspecified osteoarthritis, unspecified site; F41.9 Anxiety disorder, unspecified; F32.9 Major depressive disorder, single episode, unspecified; Z90.49 Acquired absence of other specified parts of digestive tract; Z98.890 Other specified postprocedural states; Z79.899 Other long term (current) drug therapy; Z79.82 Long term (current) use of aspirin; Z87.891 Personal history of nicotine dependence; Z88.8 Allergy status to other drugs, medicaments and biological substances
CPT/HCPCS: 64493; 64494; J1100; J3490; Q9965